=== PATIENT | female | born 1980 | race Caucasian/White ===

== ENCOUNTER 2023-04-22 15:24 | Outpatient (CLI) | payer OTHER | END 2023-04-22 15:25 | disposition home or self-care (01) | LOC: CSHULT 15:24 | PROVIDERS: ATTEND Family Medicine | DX: R22.1 Localized swelling, mass and lump, neck (principal) | CPT/HCPCS: 76536 ==

== ENCOUNTER 2023-06-03 09:38 | Outpatient (CLI) | payer OTHER ==
[2023-06-03] MEDS ORDERED: Iopamidol 300 61% 100 ML VIAL FS ONE (14:24)
== END 2023-06-03 09:39 | disposition home or self-care (01) ==
LOC: CSHCT 09:38
PROVIDERS: ATTEND Family Medicine
DX: I89.8 Other specified noninfective disorders of lymphatic vessels and lymph nodes (principal); E07.9 Disorder of thyroid, unspecified; J35.1 Hypertrophy of tonsils
CPT/HCPCS: 70491; Q9967

== ENCOUNTER 2024-10-18 14:28 | Outpatient (CLI) | payer OTHER | END 2024-10-18 14:29 | disposition home or self-care (01) | LOC: CSHRAD 14:28 | PROVIDERS: ATTEND Family Medicine | DX: M54.50 Low back pain, unspecified (principal); M47.816 Spondylosis without myelopathy or radiculopathy, lumbar region | CPT/HCPCS: 72110 ==